=== PATIENT | male | born 1985 | race Caucasian/White ===

== ENCOUNTER 2018-06-29 13:55 | Emergency (ER) | payer BC, OTHER ==
[2018-06-29] MEDS ORDERED: Bacitracin Oint 1 GM U/D Packet TOP ONE (14:10)
[2018-06-29] MEDS ORDERED: Diphtheria,Pertussis(Acell),Tetanus Vaccine 0.5 ML Syringe IM ONE (14:10)
--- NOTE | 2018-06-29 14:14 | EDM.PDOC ---
ED HPI GENERAL MEDICAL PROBLEM - General Chief Complaint: Laceration Stated Complaint: CUT HIS RT THUMB Time Seen by Provider: 06/29/18 14:04 - History of Present Illness INITIAL COMMENTS - FREE TEXT/NARRATIVE: HISTORY AND PHYSICAL: History of present illness: Patient is a 32-year-old male presents with concern of acute injury to his right hand and forearm laceration this occurred prior to arrival he denies up-to -date tetanus Review of systems: As per history of present illness and below otherwise all systems reviewed and negative. Past medical history: As per history of present illness and as reviewed below otherwise noncontributory. Surgical history: As per history of present illness and as reviewed below otherwise noncontributory. Social history: No reported history of drug or alcohol abuse. Family history: As per history of present illness and as reviewed below otherwise noncontributory. Physical exam: HEENT: Atraumatic, normocephalic, pupils reactive, negative for conjunctival pallor or scleral icterus, mucous membranes moist, throat clear, neck supple, nontender, trachea midline. Lungs: Clear to auscultation, breath sounds equal bilaterally, chest nontender. Heart: S1S2, regular, negative for clicks, rubs, or JVD. Abdomen: Soft, nondistended, nontender. Negative for masses or hepatosplenomegaly. Negative for costovertebral tenderness. Pelvis: Stable nontender. Genitourinary: Deferred. Rectal: Deferred. Extremities: Patient has approximately 2 cm moderate Laceration of his right hand at the base of his right thumb there is no tendon involvement CMS neurovascular is unremarkable. Neuro: Awake, alert, oriented. Cranial nerves II through XII unremarkable. Cerebellum unremarkable. Motor and sensory unremarkable throughout. Exam nonfocal. Diagnostics: None Therapeutics: Patient was anesthetized 1% lidocaine without epinephrine and irrigated with 0.9 normal saline prepped and draped in sterile manner closed with 5-0 interrupted suture bacitracin was applied tetanus was updated Impression: #1 right hand injury ( laceration) Definitive disposition and diagnosis as appropriate pending reevaluation and review of above. - Related Data Allergies Allergy/AdvReac Type Severity Reaction Status Date / Time No Known Allergies Allergy Verified 12/23/15 21:39 Home Meds: Home Meds . [No Known Home Meds] 12/23/15 [History] Past Medical History - Past Health History Medical/Surgical History: Denies Medical/Surgical History Social & Family History - Family History Oncologic: Reports: Leukemia ED ROS GENERAL - Review of Systems Review Of Systems: ROS reveals no pertinent complaints other than HPI. ED EXAM, SKIN/RASH Exam: See Below (See dictation) Course - Orders/Labs/Meds Orders: Active Orders 24 hr Category Date Time Status Vaccines to be Administered [RC] PER UNIT ROUTINE Care 06/29/18 14:10 Active Bacitracin [Bacitracin Oint 1 GM] Med 06/29/18 14:10 Once 1 dose TOP ONETIME ONE Diphth,Pertuss(Acell),Tet Vac [Adacel] Med 06/29/18 14:10 Once 0.5 ml IM .ONCE ONE Lidocaine 1% [Xylocaine-MPF 1%] Med 06/29/18 14:10 Once 5 ml INJECT ONETIME ONE Medication Orders Lidocaine HCl (Xylocaine-Mpf 1%) 5 ml INJECT ONETIME ONE Stop: 06/29/18 14:11 Meds: Medications Generic Name Dose Route Start Last Admin Trade Name Freq PRN Reason Stop Dose Admin Lidocaine HCl 5 ml 06/29/18 14:10 Xylocaine-Mpf 1% INJECT 06/29/18 14:11 ONETIME ONE Departure - Departure Time of Disposition: 14:13 Disposition: Home, Self-Care 01 Condition: Good Clinical Impression: Laceration - Discharge Information *PRESCRIPTION DRUG MONITORING PROGRAM REVIEWED*: Not Applicable *COPY OF PRESCRIPTION DRUG MONITORING REPORT IN PATIENT HE: Not Applicable Referrals: PCP,None [Primary Care Provider] - Additional Instructions: The following information is given to patients seen in the emergency department who are being discharged to home. This information is to outline your options for follow-up care. We provide all patients seen in our emergency department with a follow-up referral. The need for follow-up, as well as the timing and circumstances, are variable depending upon the specifics of your emergency department visit. If you don't have a primary care physician on staff, we will provide you with a referral. We always advise you to contact your personal physician following an emergency department visit to inform them of the circumstance of the visit and for follow-up with them and/or the need for any referrals to a consulting specialist. The emergency department will also refer you to a specialist when appropriate. This referral assures that you have the opportunity for followup care with a specialist. All of these measure are taken in an effort to provide you with optimal care, which includes your followup. Under all circumstances we always encourage you to contact your private physician who remains a resource for coordinating your care. When calling for followup care, please make the office aware that this follow-up is from your recent emergency room visit. If for any reason you are refused follow-up, please contact the emergency department at and asked to speak to the emergency department charge nurse. Follow-up primary medical doctor as needed as discussed Motrin/Tylenol as directed return as needed as discussed - My Orders Last 24 Hours: My Active Orders 06/29/18 14:10 Vaccines to be Administered [RC] PER UNIT ROUTINE Bacitracin [Bacitracin Oint 1 GM] 1 dose TOP ONETIME ONE Diphth,Pertuss(Acell),Tet Vac [Adacel] 0.5 ml IM .ONCE ONE Lidocaine 1% [Xylocaine-MPF 1%] 5 ml INJECT ONETIME ONE - Assessment/Plan Last 24 Hours: My Active Orders 06/29/18 14:10 Vaccines to be Administered [RC] PER UNIT ROUTINE Bacitracin [Bacitracin Oint 1 GM] 1 dose TOP ONETIME ONE Diphth,Pertuss(Acell),Tet Vac [Adacel] 0.5 ml IM .ONCE ONE Lidocaine 1% [Xylocaine-MPF 1%] 5 ml INJECT ONETIME ONE
[2018-06-29 15:03] VITALS: BP 121/67
== END 2018-06-29 14:46 | disposition home or self-care (01) ==
LOC: MW.ED 13:55
DX: S61.011A Laceration without foreign body of right thumb without damage to nail, initial encounter (principal); Z23 Encounter for immunization; W26.9XXA Contact with unspecified sharp object(s), initial encounter
CPT/HCPCS: 12001; 90715; 99282; 99283

== ENCOUNTER 2019-02-15 18:33 | Observation (INO) | payer BC ==
[2019-02-15] MEDS ORDERED: Ketorolac 30 MG/ML SDV IVPUSH ONE (18:57)
[2019-02-15] MEDS ORDERED: Ondansetron 4 MG/2 ML SDV IVPUSH ONE (18:57)
[2019-02-15] MEDS ORDERED: Sodium Chloride 0.9% 1,000 ML IV ONE (18:57)
--- NOTE | 2019-02-15 18:57 | EDM.PDOC ---
ED HPI GENERAL MEDICAL PROBLEM - General Chief Complaint: Abdominal Pain Stated Complaint: PT HAS STOMACH PAIN Time Seen by Provider: 02/15/19 18:57 Source of Information: Reports: Patient History Limitations: Reports: No Limitations - History of Present Illness INITIAL COMMENTS - FREE TEXT/NARRATIVE: HISTORY AND PHYSICAL: History of present illness: Patient is a 33-year-old male who presents to the emergency room with complaints of lower abdominal pain, nausea and vomiting over the past 24 hours. He states the pain is more suprapubic and does have some difficulty with urination. Patient denies any fever, chills, headache, change in vision, syncope or near syncope. Denies any chest pain, back pain, shortness of breath or cough. Denies any diarrhea or constipation. Has not noted any blood in urine or stool. Patient has been eating and drinking appropriately. Review of systems: As per history of present illness and below otherwise all systems reviewed and negative. Past medical history: As per history of present illness and as reviewed below otherwise noncontributory. Surgical history: As per history of present illness and as reviewed below otherwise noncontributory. Social history: See social history for further information Family history: As per history of present illness and as reviewed below otherwise noncontributory. Physical exam: General: Well-developed and well-nourished 33-year-old male. Alert and oriented. Nontoxic appearing and in no acute distress. HEENT: Atraumatic, normocephalic, pupils equal and reactive bilaterally, negative for conjunctival pallor or scleral icterus, mucous membranes moist, TMs normal bilaterally, throat clear, neck supple, nontender, trachea midline. No drooling or trismus noted. No meningeal signs. No hot potato voice noted. Lungs: Clear to auscultation, breath sounds equal bilaterally, chest nontender. Heart: S1S2, regular rate and rhythm without overt murmur Abdomen: Low abdomen feels firm, nondistended, RLQ and mid suprapubic tenderness. Negative for masses or hepatosplenomegaly. Negative for costovertebral tenderness. Pelvis: Stable nontender. Genitourinary: Deferred. Rectal: Deferred. Skin: Intact, warm, dry. No lesions or rashes noted. Extremities: Atraumatic, moves all extremities per self with difficulty or deficits, negative for cords or calf pain. Neurovascular unremarkable. Neuro: Awake, alert, oriented. Cranial nerves II through XII unremarkable. Cerebellum unremarkable. Motor and sensory unremarkable throughout. Exam nonfocal. Notes: CT of the abdomen shows a perforated acute appendicitis. No well defined drainable abscess noted. Patient does have an elevated white count. Dr. Tamez , general surgeon performance management consultant, was consulted on this patient. Will give Zosyn IV now. Patient is aware of the diagnostic findings. Last ate and drank at 6pm 2119: Dr Tamez here to see patient. Patient will go to OR from here. Diagnostics: CBC, CMP, UA, CT abdomen and pelvis Therapeutics: IV fluid, Zofran, Toradol Impression: Perforated acute appendicitis Plan: To OR per Dr Tamez Definitive disposition and diagnosis as appropriate pending reevaluation and review of above. lower abdomen Pain Score (Numeric/FACES): 8 - Related Data Allergies Allergy/AdvReac Type Severity Reaction Status Date / Time No Known Allergies Allergy Verified 02/15/19 19:08 Home Meds: Home Meds . [No Known Home Meds] 12/23/15 [History] Past Medical History - Past Health History Medical/Surgical History: Denies Medical/Surgical History Social & Family History - Family History Family Medical History: Noncontributory Oncologic: Reports: Leukemia ED ROS GENERAL - Review of Systems Review Of Systems: ROS reveals no pertinent complaints other than HPI. ED EXAM, GI/ABD - Physical Exam Exam: See Below (See dictation) Course - Vital Signs Last Recorded V/S: Last Vital Signs Temp 99 F 02/15/19 19:00 Pulse 110 H 02/15/19 19:00 Resp 18 02/15/19 19:00 BP 136/79 02/15/19 19:00 Pulse Ox 97 02/15/19 19:00 - Orders/Labs/Meds Orders: Active Orders 24 hr Category Date Time Status Piperacillin/Tazobactam [Piperacil-Tazobact] 3.375 gm Med 02/15/19 20:54 Active Sodium Chloride 0.9% [Normal Saline] 50 ml IV ONETIME Medication Orders Piperacillin Sod/Tazobactam (Sod 3.375 gm/ Sodium Chloride) 50 mls @ 100 mls/ hr IV ONETIME ONE Stop: 02/15/19 21:23 Last Admin: 02/15/19 21:03 Dose: 100 mls/hr Labs: Laboratory Tests 02/15/19 02/15/19 02/15/19 Range/Units 19:31 19:31 20:22 WBC 14.68 H (4.0-11.0) K/uL RBC 5.75 (4.50-5.90) M/uL Hgb 17.4 H (13.0-17.0) g/dL Hct 49.4 (38.0-50.0) % MCV 85.9 (80.0-98.0) fL MCH 30.3 (27.0-32.0) pg MCHC 35.2 (31.0-37.0) g/dL RDW Std Deviation 39.4 (28.0-62.0) fl RDW Coeff of Vira 13 (11.0-15.0) % Plt Count 176 (150-400) K/uL MPV 10.40 (7.40-12.00) fL Neut % (Auto) 85.3 H (48.0-80.0) % Lymph % (Auto) 7.0 L (16.0-40.0) % [place] % (Auto) 7.6 (0.0-15.0) % Eos % (Auto) 0.0 (0.0-7.0) % Baso % (Auto) 0.1 (0.0-1.5) % Neut # (Auto) 12.5 H (1.4-5.7) K/uL Lymph # (Auto) 1.0 (0.6-2.4) K/uL [place] # (Auto) 1.1 H (0.0-0.8) K/uL Eos # (Auto) 0.0 (0.0-0.7) K/uL Baso # (Auto) 0.0 (0.0-0.1) K/uL Nucleated RBC % 0.0 /100WBC Nucleated RBCs # 0 K/uL Sodium 140 (136-148) mmol/L Potassium 3.6 (3.5-5.1) mmol/L Chloride 101 (98-107) mmol/L Carbon Dioxide 28.5 (21.0-32.0) mmol/L BUN 13 (7.0-18.0) mg/dL Creatinine 1.2 (0.8-1.3) mg/dL Est Cr Clr Drug Dosing 100.85 mL/min Estimated GFR (MDRD) > 60.0 ml/min Glucose 130 H (74-106) mg/dL Calcium 9.5 (8.5-10.1) mg/dL Total Bilirubin 0.9 (0.2-1.0) mg/dL AST 17 (15-37) IU/L ALT 39 (14-63) IU/L Alkaline Phosphatase 82 (46-116) U/L Total Protein 8.6 H (6.4-8.2) g/dL Albumin 4.1 (3.4-5.0) g/dL Globulin 4.5 H (2.6-4.0) g/dL Albumin/Globulin Ratio 0.9 (0.9-1.6) Urine Color DARK YELLOW Urine Appearance SLT CLOUDY Urine pH 6.5 (5.0-8.0) Ur Specific [place] 1.015 (1.001-1.035) Urine Protein TRACE H (NEGATIVE) mg/dL Urine Glucose (UA) NEGATIVE (NEGATIVE) mg/dL Urine Ketones 40 H (NEGATIVE) mg/dL Urine Occult Blood NEGATIVE (NEGATIVE) Urine Nitrite NEGATIVE (NEGATIVE) Urine Bilirubin SMALL H (NEGATIVE) Urine Ictotest NEGATIVE Urine Urobilinogen 0.2 (<2.0) EU/dL Ur Leukocyte Esterase NEGATIVE (NEGATIVE) Urine RBC 0-2 (0-2/HPF) Urine WBC 0-3 (0-5/HPF) Ur Epithelial Cells OCCASIONAL (NONE-FEW) Ur Renal Epithelial Cell OCCASIONAL Urine Bacteria FEW (NEGATIVE) Urine Mucus LIGHT (NONE-MOD) Meds: Medications Generic Name Dose Route Start Last Admin Trade Name Freq PRN Reason Stop Dose Admin Piperacillin Sod/Tazobactam 50 mls @ 100 mls/hr 02/15/19 20:54 02/15/19 21:03 Sod 3.375 gm/ Sodium Chloride IV 02/15/19 21:23 100 mls/hr ONETIME ONE Administration Discontinued Medications Generic Name Dose Route Start Last Admin Trade Name Freq PRN Reason Stop Dose Admin Sodium Chloride 1,000 mls @ 999 mls/hr 02/15/19 18:57 02/15/19 19:32 Normal Saline IV 02/15/19 19:57 999 mls/hr STAT ONE Administration Iopamidol 100 ml 02/15/19 20:28 02/15/19 20:28 Isovue-370 (76%) IVPUSH 02/15/19 20:29 100 ml ONETIME ONE Administration Ketorolac Tromethamine 30 mg 02/15/19 18:57 02/15/19 19:32 Toradol IVPUSH 02/15/19 18:58 30 mg ONETIME ONE Administration Ondansetron HCl 4 mg 02/15/19 18:57 02/15/19 19:32 Zofran IVPUSH 02/15/19 18:58 4 mg ONETIME ONE Administration Departure - Departure Time of Disposition: 21:19 Disposition: Refer to Observation Clinical Impression: Acute perforated appendicitis - Discharge Information Referrals: PCP,None [Primary Care Provider] - Forms: ED Department Discharge - My Orders Last 24 Hours: My Active Orders 02/15/19 20:54 Piperacillin/Tazobactam [Piperacil-Tazobact] 3.375 gm Sodium Chloride 0.9% [ Normal Saline] 50 ml IV ONETIME - Assessment/Plan Last 24 Hours: My Active Orders 02/15/19 20:54 Piperacillin/Tazobactam [Piperacil-Tazobact] 3.375 gm Sodium Chloride 0.9% [ Normal Saline] 50 ml IV ONETIME
[2019-02-15 19:56] LABS: CHLORIDE,CL 101 mmol/L (98-107); SODIUM,NA 140 mmol/L (136-148)
[2019-02-15] MEDS ORDERED: Iopamidol 755 Mg/ML 100 ML Bottle IVPUSH ONE (20:28)
--- NOTE | 2019-02-15 20:46 | CT ---
HISTORY: Lower abdominal pain. TECHNIQUE: CT abdomen and pelvis with IV contrast. COMPARISON: None. FINDINGS: Abdomen: No liver lesions. No bile duct dilation. No pancreatic mass or pancreatic duct dilation. No spleen lesions. No adrenal nodules. Kidneys enhance symmetrically. No renal mass. No hydronephrosis. Distal appendix is dilated with mild wall thickening. Inflammatory fat stranding in the lower pelvis greatest around the tip of the appendix. Extraluminal gas in the mesentery near the appendix. No well-defined fluid collection. No dilated bowel. No lymphadenopathy. Abdominal aorta is normal caliber. Pelvis: No lymphadenopathy. 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 No acute findings. Lower chest: Unremarkable. IMPRESSION: Perforated acute appendicitis. No well-defined drainable abscess. Please note that all CT scans at this facility use dose modulation, iterative reconstruction, and/or weight-based dosing when appropriate to reduce radiation dose to as low as reasonably achievable. Dictated by Geovani Elizabeth MD @ Feb 15 2019 8:36PM Signed by Dr. Geovani Elizabeth @ Feb 15 2019 8:44PM
[2019-02-15] MEDS ORDERED: Piperacillin/Tazobactam 3.375 GM in Sodium Chloride 0.9% 50 ML IV ONE (20:54)
[2019-02-15] MEDS ORDERED: Morphine 4 MG/ML Syringe IVPUSH ONE (21:41)
--- NOTE | 2019-02-15 21:42 | PCM.PREANE ---
Preanesthetic Assessment - Review of Systems General: No Symptoms Pulmonary: No Symptoms Cardiovascular: No Symptoms Gastrointestinal: Abdominal Pain Neurological: No Symptoms Other: Reports: None - Physical Assessment NPO Status Date: 02/15/19 NPO Status Time: 18:00 O2 Sat by Pulse Oximetry: 97 Respiratory Rate: 18 Vital Signs: Last Vital Signs Temp 37.2 C 02/15/19 19:00 Pulse 110 H 02/15/19 19:00 Resp 18 02/15/19 19:00 BP 136/79 02/15/19 19:00 Pulse Ox 97 02/15/19 19:00 Height: 1.88 m Weight: 97 kg ASA Class: 1E Mental Status: Alert & Oriented x3 Dentition: Reports: Normal Dentition ROM/Head Extension: Full Lungs: Clear to Auscultation, Normal Respiratory Effort Cardiovascular: Regular Rate, Regular Rhythm - Lab Values: Laboratory Last Values WBC 14.68 K/uL (4.0-11.0) H 02/15/19 19:31 RBC 5.75 M/uL (4.50-5.90) 02/15/19 19:31 Hgb 17.4 g/dL (13.0-17.0) H 02/15/19 19:31 Hct 49.4 % (38.0-50.0) 02/15/19 19:31 MCV 85.9 fL (80.0-98.0) 02/15/19 19:31 MCH 30.3 pg (27.0-32.0) 02/15/19 19:31 MCHC 35.2 g/dL (31.0-37.0) 02/15/19 19:31 RDW Std Deviation 39.4 fl (28.0-62.0) 02/15/19 19:31 RDW Coeff of Vira 13 % (11.0-15.0) 02/15/19 19:31 Plt Count 176 K/uL (150-400) 02/15/19 19:31 MPV 10.40 fL (7.40-12.00) 02/15/19 19:31 Neut % (Auto) 85.3 % (48.0-80.0) H 02/15/19 19:31 Lymph % (Auto) 7.0 % (16.0-40.0) L 02/15/19 19:31 [place] % (Auto) 7.6 % (0.0-15.0) 02/15/19 19: Eos % (Auto) 0.0 % (0.0-7.0) 02/15/19: Baso % (Auto) 0.1 % (0.0-1.5) 02/15/19: Neut # (Auto) 12.5 K/uL (1.4-5.7) H 02/15/19: Lymph # (Auto) 1.0 K/uL (0.6-2.4) 02/15/19: [place] # (Auto) 1.1 K/uL (0.0-0.8) H 02/15/19: Eos # (Auto) 0.0 K/uL (0.0-0.7) 02/15/19: Baso # (Auto) 0.0 K/uL (0.0-0.1) 02/15/19: Nucleated RBC % 0.0 /100WBC 02/15/19: Nucleated RBCs # 0 K/uL 02/15/19: Sodium 140 mmol/L (136-148) 02/15/19: Potassium 3.6 mmol/L (3.5-5.1) 02/15/19: Chloride 101 mmol/L (98-107) 02/15/19: Carbon Dioxide 28.5 mmol/L (21.0-32.0) 02/15/19: BUN 13 mg/dL (7.0-18.0) 02/15/19: Creatinine 1.2 mg/dL (0.8-1.3) 02/15/19 19: Est Cr Clr Drug Dosing 100.85 mL/min 02/15/19 19: Estimated GFR (MDRD) > 60.0 ml/min 02/15/19: Glucose 130 mg/dL (74-106) H 02/15/19: Calcium 9.5 mg/dL (8.5-10.1) 02/15/19 19: Total Bilirubin 0.9 mg/dL (0.2-1.0) 02/15/19 19: AST 17 IU/L (15-37) 02/15/19 19:31 ALT 39 IU/L (14-63) 02/15/19 19:31 Alkaline Phosphatase 82 U/L (46-116) 02/15/19 19:31 Total Protein 8.6 g/dL (6.4-8.2) H 02/15/19 19:31 Albumin 4.1 g/dL (3.4-5.0) 02/15/19 19:31 Globulin 4.5 g/dL (2.6-4.0) H 02/15/19 19:31 Albumin/Globulin Ratio 0.9 (0.9-1.6) 02/15/19 19:31 Urine Color DARK YELLOW 02/15/19 20:22 Urine Appearance SLT CLOUDY 02/15/19 20:22 Urine pH 6.5 (5.0-8.0) 02/15/19 20:22 Ur Specific [place] 1.015 (1.001-1.035) 02/15/19 20:22 Urine Protein TRACE mg/dL (NEGATIVE) H 02/15/19 20:22 Urine Glucose (UA) NEGATIVE mg/dL (NEGATIVE) 02/15/19 20:22 Urine Ketones 40 mg/dL (NEGATIVE) H 02/15/19 20:22 Urine Occult Blood NEGATIVE (NEGATIVE) 02/15/19 20:22 Urine Nitrite NEGATIVE (NEGATIVE) 02/15/19 20:22 Urine Bilirubin SMALL (NEGATIVE) H 02/15/19 20:22 Urine Ictotest NEGATIVE 02/15/19 20:22 Urine Urobilinogen 0.2 EU/dL (<2.0) 02/15/19 20:22 Ur Leukocyte Esterase NEGATIVE (NEGATIVE) 02/15/19 20:22 Urine RBC 0-2 (0-2/HPF) 02/15/19 20:22 Urine WBC 0-3 (0-5/HPF) 02/15/19 20:22 Ur Epithelial Cells OCCASIONAL (NONE-FEW) 02/15/19 20:22 Ur Renal Epithelial Cell OCCASIONAL 02/15/19 20:22 Urine Bacteria FEW (NEGATIVE) 02/15/19 20:22 Urine Mucus LIGHT (NONE-MOD) 02/15/19 20:22 - Allergies Allergies/Adverse Reactions: Allergies Allergy/AdvReac Type Severity Reaction Status Date / Time No Known Allergies Allergy Verified 02/15/19 19:08 - Acknowledgements Anesthesia Type Planned: General Anesthesia (Risks and bennifits discussed and patient wishes to proceed.) Pt an Appropriate Candidate for the Planned Anesthesia: Yes Alternatives and Risks of Anesthesia Discussed w Pt/Guardian: Yes Pt/Guardian Understands and Agrees with Anesthesia Plan: Yes PreAnesthesia Questionnaire - Past Health History Medical/Surgical History: Denies Medical/Surgical History - SUBSTANCE USE Smoking Status *Q: Never Smoker Recreational Drug Use History: No - HOME MEDS Home Medications: Home Meds . [No Known Home Meds] 12/23/15 [History] - CURRENT (IN HOUSE) MEDS Current Meds: Current Medications Lactated Ringer's (Ringers, Lactated) 1,000 mls @ 125 mls/hr IV ASDIRECTED TANYA Discontinued Medications Sodium Chloride (Normal Saline) 1,000 mls @ 999 mls/hr IV STAT ONE Stop: 02/15/19 19:57 Last Admin: 02/15/19 19:32 Dose: 999 mls/hr Piperacillin Sod/Tazobactam (Sod 3.375 gm/ Sodium Chloride) 50 mls @ 100 mls/ hr IV ONETIME ONE Stop: 02/15/19 21:23 Last Admin: 02/15/19 21:03 Dose: 100 mls/hr Iopamidol (Isovue-370 (76%)) 100 ml IVPUSH ONETIME ONE Stop: 02/15/19 20:29 Last Admin: 02/15/19 20:28 Dose: 100 ml Ketorolac Tromethamine (Toradol) 30 mg IVPUSH ONETIME ONE Stop: 02/15/19 18:58 Last Admin: 02/15/19 19:32 Dose: 30 mg Ondansetron HCl (Zofran) 4 mg IVPUSH ONETIME ONE Stop: 02/15/19 18:58 Last Admin: 02/15/19 19:32 Dose: 4 mg
--- NOTE | 2019-02-15 21:42 | PCM.HP ---
H&P History of Present Illness - General Date of Service: 02/15/19 Admit Problem/Dx: Admission Diagnosis/Problem Admission Diagnosis/Problem Appendicitis Source of Information: Patient, Family History Limitations: Reports: No Limitations - History of Present Illness Initial Comments - Free Text/Narative: 33-year-old gentleman who developed abdominal pain last night. Pain was rather diffuse initially, now it has migrated to the lower quadrant, slightly greater on the right than the left. No fever or chills. Patient does have nausea and vomiting and is not able to keep anything down. He also has anorexia. Symptom Onset Date: 02/14/19 Location: Reports: Abdomen Quality: Reports: Pressure, Throbbing Severity: Moderate Improves with: Reports: Rest Worsens with: Reports: Movement Context: Reports: Sick Contact Associated Symptoms: Reports: Loss of Appetite, Nausea/Vomiting. Denies: Fever/ Chills lower abdomen Pain Score (Numeric/FACES): 8 - Related Data Allergies/Adverse Reactions: Allergies Allergy/AdvReac Type Severity Reaction Status Date / Time No Known Allergies Allergy Verified 02/15/19 19:08 Home Medications: Home Meds . [No Known Home Meds] 12/23/15 [History] Past Medical History - Past Health History Medical/Surgical History: Denies Medical/Surgical History Social & Family History - Family History Family Medical History: Noncontributory Oncologic: Reports: Leukemia - Tobacco Use Smoking Status *Q: Never Smoker - Recreational Drug Use Recreational Drug Use: No H&P Review of Systems - Review of Systems: Review Of Systems: See Below General: Reports: Malaise, Decreased Appetite. Denies: Fever, Chills, Night Sweats, Diaphoresis HEENT: Reports: No Symptoms Pulmonary: Denies: Shortness of Breath, Wheezing Cardiovascular: Denies: Chest Pain Gastrointestinal: Reports: Abdominal Pain, Anorexia, Decreased Appetite, Flatus , Nausea, Vomiting. Denies: Black Stool, Bloody Stool, Constipation, Diarrhea, Distension, Hematemesis, Hematochezia Genitourinary: Reports: No Symptoms Musculoskeletal: Reports: No Symptoms Skin: Reports: No Symptoms Psychiatric: Reports: No Symptoms Neurological: Reports: No Symptoms Hematologic/Lymphatic: Reports: No Symptoms Immunologic: Reports: No Symptoms Exam - Exam Exam: See Below - Vital Signs Vital Signs: Last Vital Signs Temp 99 F 02/15/19 19:00 Pulse 110 H 02/15/19 19:00 Resp 18 02/15/19 19:00 BP 136/79 02/15/19 19:00 Pulse Ox 97 02/15/19 19:00 Weight: 213 lb 13.574 oz - Exam General: Alert, Oriented, Cooperative, Mild Distress HEENT: Conjunctiva Clear, EACs Clear. No: Scleral Icterus Neck: Supple, Trachea Midline Lungs: Clear to Auscultation, Normal Respiratory Effort Cardiovascular: Regular Rate, Regular Rhythm, Tachycardia. No: Systolic Murmur , Diastolic Murmur GI/Abdominal Exam: Soft, No Distention, No Mass, Rebound, Tender, Abnormal Bowel Sounds (Hypoactive). No: Guarding, Rigid (Male) Exam: Deferred Rectal (Males) Exam: Deferred Back Exam: Normal Inspection Extremities: Normal Inspection, Normal Range of Motion, No Pedal Edema Peripheral Pulses: 4+: Posterior Tibial (L), Posterior Tibial (R), Dorsalis Pedis (L), Dorsalis Pedis (R) Skin: Warm, Dry, Intact Neurological: Cranial Nerves Intact Psychiatric: Alert, Normal Affect, Normal Mood - Patient Data Lab Results Last 24 hrs: Laboratory Results - last 24 hr 02/15/19 02/15/19 02/15/19 Range/Units 19:31 19:31 20:22 WBC 14.68 H (4.0-11.0) K/uL RBC 5.75 (4.50-5.90) M/uL Hgb 17.4 H (13.0-17.0) g/dL Hct 49.4 (38.0-50.0) % MCV 85.9 (80.0-98.0) fL MCH 30.3 (27.0-32.0) pg MCHC 35.2 (31.0-37.0) g/dL RDW Std Deviation 39.4 (28.0-62.0) fl RDW Coeff of Vira 13 (11.0-15.0) % Plt Count 176 (150-400) K/uL MPV 10.40 (7.40-12.00) fL Neut % (Auto) 85.3 H (48.0-80.0) % Lymph % (Auto) 7.0 L (16.0-40.0) % [place] % (Auto) 7.6 (0.0-15.0) % Eos % (Auto) 0.0 (0.0-7.0) % Baso % (Auto) 0.1 (0.0-1.5) % Neut # (Auto) 12.5 H (1.4-5.7) K/uL Lymph # (Auto) 1.0 (0.6-2.4) K/uL [place] # (Auto) 1.1 H (0.0-0.8) K/uL Eos # (Auto) 0.0 (0.0-0.7) K/uL Baso # (Auto) 0.0 (0.0-0.1) K/uL Nucleated RBC % 0.0 /100WBC Nucleated RBCs # 0 K/uL Sodium 140 (136-148) mmol/L Potassium 3.6 (3.5-5.1) mmol/L Chloride 101 (98-107) mmol/L Carbon Dioxide 28.5 (21.0-32.0) mmol/L BUN 13 (7.0-18.0) mg/dL Creatinine 1.2 (0.8-1.3) mg/dL Est Cr Clr Drug Dosing 100.85 mL/min Estimated GFR (MDRD) > 60.0 ml/min Glucose 130 H (74-106) mg/dL Calcium 9.5 (8.5-10.1) mg/dL Total Bilirubin 0.9 (0.2-1.0) mg/dL AST 17 (15-37) IU/L ALT 39 (14-63) IU/L Alkaline Phosphatase 82 (46-116) U/L Total Protein 8.6 H (6.4-8.2) g/dL Albumin 4.1 (3.4-5.0) g/dL Globulin 4.5 H (2.6-4.0) g/dL Albumin/Globulin Ratio 0.9 (0.9-1.6) Urine Color DARK YELLOW Urine Appearance SLT CLOUDY Urine pH 6.5 (5.0-8.0) Ur Specific [place] 1.015 (1.001-1.035) Urine Protein TRACE H (NEGATIVE) mg/dL Urine Glucose (UA) NEGATIVE (NEGATIVE) mg/dL Urine Ketones 40 H (NEGATIVE) mg/dL Urine Occult Blood NEGATIVE (NEGATIVE) Urine Nitrite NEGATIVE (NEGATIVE) Urine Bilirubin SMALL H (NEGATIVE) Urine Ictotest NEGATIVE Urine Urobilinogen 0.2 (<2.0) EU/dL Ur Leukocyte Esterase NEGATIVE (NEGATIVE) Urine RBC 0-2 (0-2/HPF) Urine WBC 0-3 (0-5/HPF) Ur Epithelial Cells OCCASIONAL (NONE-FEW) Ur Renal Epithelial Cell OCCASIONAL Urine Bacteria FEW (NEGATIVE) Urine Mucus LIGHT (NONE-MOD) Result Diagrams: 02/15/19 19:31 02/15/19 19:31 Imaging Impressions Last 24 hrs: CT scan report personally reviewed. I certainly agree that he has appendicitis. I did not see any obvious abscess. - Problem List (1) Acute perforated appendicitis SNOMED Code(s): 192426584 ICD Code: K35.32 - ACUTE APPENDICITIS WITH PERF AND LOC PERITONITIS, W/O ABSCS Status: Acute Current Visit: Yes Problem List Initiated/Reviewed/Updated: Yes Orders Last 24hrs: Active Orders 24 hr Category Date Time Status Admission Status [Patient Status] [ADT] Stat ADT 02/15/19 21:25 Active Antiembolic Devices [RC] PER UNIT ROUTINE Care 02/15/19 21:33 Active Antiembolic Devices [RC] PER UNIT ROUTINE Care 02/15/19 21:36 Ordered Insert Urinary Catheter [OM.PC] Timed Care 02/15/19 21:36 Ordered Oxygen Therapy [RC] ASDIRECTED Care 02/15/19 21:36 Ordered RT Incentive Spirometry [RC] Q1HWA Care 02/15/19 21:36 Ordered Skin Preparation [RC] .PREOP Care 02/15/19 21:36 Ordered Urinary Catheter Assessment [RC] ASDIRECTED Care 02/15/19 21:36 Ordered Urinary Catheter Assessment [RC] ASDIRECTED Care 02/15/19 21:36 Ordered Urinary Catheter Assessment [RC] ASDIRECTED Care 02/15/19 21:36 Ordered Vital Signs [RC] PER UNIT ROUTINE Care 02/15/19 21:36 Ordered Nothing Per Oral Diet [DIET] Diet 02/15/19 Dinner Ordered Lactated Ringers @ 125 MLS/HR(1000ml) Med 02/15/19 21:45 Ordered Lactated Ringers [Ringers, Lactated] 1,000 ml IV ASDIRECTED Antiembolic Hose [OM.PC] Routine Oth 02/15/19 21:36 Ordered MARTA Hose [Antiembolic Hose] [OM.PC] Stat Oth 02/15/19 21:33 Ordered Resuscitation Status Routine Resus Stat 02/15/19 21:36 Ordered Assessment/Plan Comment:: Laparoscopic appendectomy, possible open appendectomy. Both operative procedures, along with the risks, including, but not limited to, bleeding, infection, pneumonia, deep venous thrombosis, pulmonary emboli, myocardial infarction, and adjacent organ injury have been reviewed with the patient who voices understanding, offers no questions and agrees to proceed. Patient and his are both aware that I may have to open to adequately deal with his appendicitis. We also discussed the possibility of placing a drain and leaving that for a few days after surgery. They again wish to proceed. Questions have been answered.
[2019-02-15] MEDS ORDERED: Lactated Ringers 1,000 ML IV SCH (21:45)
[2019-02-15] MEDS ORDERED: ceFAZolin 1 GM Vial ONE (21:56)
[2019-02-15] MEDS ORDERED: Bupivacaine 0.5% 30 ML SDV ONE (21:56)
[2019-02-15] MEDS ORDERED: Lidocaine 2% 5 ML SDV ONE (22:09)
[2019-02-15] MEDS ORDERED: Dexamethasone 4 MG/ML 5 ML MDV ONE (22:09)
[2019-02-15] MEDS ORDERED: Propofol 200 MG/20 ML SDV ONE (22:09)
[2019-02-15] MEDS ORDERED: Ondansetron 4 MG/2 ML SDV ONE (22:09)
[2019-02-15] MEDS ORDERED: Midazolam 1 MG/ML 2 ML SDV ONE (22:09)
[2019-02-15] MEDS ORDERED: fentaNYL 250 MCG/5 ML SDV ONE (22:09)
[2019-02-15] MEDS ORDERED: Ketorolac 30 MG/ML SDV ONE (22:09)
[2019-02-15] MEDS ORDERED: Morphine 4 MG/ML Syringe IVPUSH PRN (22:19)
[2019-02-15] MEDS ORDERED: Metoclopramide 10 MG/2 ML SDV IVPUSH PRN (22:19)
[2019-02-15] MEDS ORDERED: Promethazine 25 MG/ML SDV IM PRN (22:19)
[2019-02-15] MEDS ORDERED: hydrALAZINE 20 MG/ML SDV IVPUSH PRN ×2 (22:19)
[2019-02-15] MEDS ORDERED: Labetalol 20 MG/4 ML Syringe IVPUSH PRN (22:19)
[2019-02-15] MEDS ORDERED: Albuterol 0.083% 2.5 MG/3 ML Neb Soln NEB PRN (22:19)
[2019-02-15] MEDS ORDERED: Acetaminophen/HYDROcodone 325-5 MG Tab PO PRN (22:19)
[2019-02-15] MEDS ORDERED: Scopolamine 1.5 MG Transdermal Patch TRDERM PRN (22:19)
[2019-02-15] MEDS ORDERED: Naloxone 0.4 MG/ML Syringe IVPUSH PRN (22:19)
[2019-02-15] MEDS ORDERED: Meperidine PF 25 MG/ML Syringe IV PRN (22:19)
[2019-02-15] MEDS ORDERED: Ondansetron 4 MG/2 ML SDV IVPUSH PRN (22:19)
[2019-02-15] MEDS ORDERED: HYDROmorphone 2 MG/ML SDV IVPUSH PRN (22:19)
[2019-02-15] MEDS ORDERED: fentaNYL 100 MCG/2 ML SDV IVPUSH PRN (22:19)
[2019-02-15] MEDS ORDERED: Meperidine PF 25 MG/ML Syringe IVPUSH PRN (22:19)
[2019-02-15] MEDS ORDERED: Atropine 0.1 MG/ML 10 ML Syringe IVPUSH PRN (22:19)
[2019-02-16] MEDS ORDERED: Ondansetron 4 MG/2 ML SDV IVPUSH PRN
[2019-02-16] MEDS ORDERED: Acetaminophen 325 MG Tab PO PRN
--- NOTE | 2019-02-16 00:03 | PCM.OPNOTE ---
- General Post-Op/Procedure Note Date of Surgery/Procedure: 02/15/19 Operative Procedure(s): Laparoscopic appendectomy Pre Op Diagnosis: Acute abdomen Post-Op Diagnosis: Acute perforated appendicitis with localized peritonitis Anesthesia Technique: General ET Tube (ASA IE) Primary Surgeon: Joe Tamez Fluid Replacement, Intraop: 1,600 Output, Urine Amount: 50 EBL in mLs: 10 Surgical Drain/Tube Type: Jorge Drain Condition: Fair Free Text/Narrative:: DICTATION [id number] CPT CODE 36139
--- NOTE | 2019-02-16 00:31 | PCM.POSTAN ---
POST ANESTHESIA ASSESSMENT - MENTAL STATUS Mental Status: Alert, Oriented - VITAL SIGNS Pulse Rate: 88 SaO2: 96 Resp Rate: 18 Blood Pressure: 123/72 - RESPIRATORY Respiratory Status: Respiratory Rate WNL, Airway Patent, O2 Saturation Stable - CARDIOVASCULAR CV Status: Pulse Rate WNL, Blood Pressure Stable - GASTROINTESTINAL GI Status: No Symptoms - PAIN Pain Score: 0 - POST OP HYDRATION Hydration Status: Adequate & Stable - OBSERVATIONS Free Text/Narrative:: patient comfortable at this time no signs or symptoms of anesthesia related problems.
[2019-02-16] MEDS: Piperacillin/Tazobactam 3.375 GM in Sodium Chloride 0.9% 50 ML IV SCH ×4 (01:10→23:26)
[2019-02-16] MEDS: Lactated Ringers 1,000 ML IV SCH ×3 (01:11→19:36)
[2019-02-16] MEDS: Morphine 10 MG/ML Syringe IVPUSH PRN ×2 (06:27→23:34)
--- NOTE | 2019-02-16 06:43 | OR ---
SURGEON: Joe Tamez M.D. DATE OF PROCEDURE: 02/15/2019 OPERATION PERFORMED: Laparoscopic appendectomy with placement of a 19-[place] Jorge drain. ANESTHESIA: General endotracheal. ASA CLASSIFICATION: 1E. PREOPERATIVE DIAGNOSIS: Acute abdomen. POSTOPERATIVE DIAGNOSIS: Acute perforated appendicitis without abscess but with localized peritonitis. ESTIMATED BLOOD LOSS: 10 mL. INTRAOPERATIVE FLUID REPLACEMENT: 1600 mL of crystalloid. INTRAOPERATIVE URINE OUTPUT: 50 mL. DESCRIPTION OF PROCEDURE: The patient was taken to the operating room and placed on the operating table in the supine position. Time-out was called for appropriate identification of the patient and procedure. Thigh-high TEDs and sequential compression boots were placed. Time-out was called for appropriate identification of the patient and procedure. Following satisfactory attainment of general endotracheal anesthesia, Zhou catheter was placed in the patient's urinary bladder. The abdomen was prepped with DuraPrep solution, sterile drapes were applied. The skin above the umbilicus was infiltrated with 0.5% Marcaine solution. The skin incision was made and deepened through the subcutaneous tissue obtaining hemostasis with the use of electrocautery. Veress needle was introduced into the peritoneal cavity. Saline drop test was positive. Carbon dioxide pneumoperitoneum was established with the release set at 13 cm of water. Once a satisfactory pneumoperitoneum was established, 5 mm camera and port were placed through the supraumbilical incision. Under camera vision, 12 mm suprapubic port was placed. The skin was infiltrated with 0.5% Marcaine solution. Skin incision was made and then extended using electrocautery. Hemostasis was obtained with the use of electrocautery. The 12 mm port was then placed under direct vision into the peritoneal cavity. The patient was now positioned with his head down and rolled to the left. A third port was placed in the left lower quadrant. The skin was again infiltrated with 0.5% Marcaine solution prior to skin incision being made. With all trocars in place, our attention was turned to the right lower quadrant where the appendix was very prominently dilated with what appeared to be a perforation in the midpoint. I did not see any purulent fluid and there did not appear to be an abscess. The appendix was mobilized and the mesoappendix taken down with Harmonic scalpel. The base of the appendix was then ligated using the Endo-KYLAH stapler with a blue load. The appendix was promptly placed in an EndoCatch. The right lower quadrant was inspected for hemostasis and bleeding was controlled. The staple line was intact. The right lower quadrant was irrigated with 1 L of saline containing 1 g of Ancef. All of that fluid was aspirated. A 19-[place] Jorge drain was placed through the suprapubic port and secured with the 2-prong grasper until the EndoCatch containing the appendix and the 12 mm port were removed. Once that was accomplished, the drain was secured to the skin with a 2-0 silk. Under camera vision and with the patient now in neutral position, the 5 mm left lower quadrant port was removed, and finally, the supraumbilical camera and port were removed. Wounds were inspected for hemostasis and bleeding sites were electrocoagulated. Other than the 2-0 silk to secure the drain, the incisions were closed with skin phill and dressed with sterile Tegaderm pads. Sponge, needle, and instrument counts were all correct. Zhou catheter was removed prior to emergence from anesthesia. Following emergence from anesthesia and extubation, the patient was taken to the recovery room in stable condition. CAREN TIRADO /[id number]
[2019-02-16] MEDS: Acetaminophen/HYDROcodone 325-5 MG Tab PO PRN (10:54)
--- NOTE | 2019-02-16 11:40 | PCM.SURGPN ---
- General Info Date of Service: 02/16/19 POD#: 1 Post-Op Diagnosis: Ruptured appendicitis without abscess Functional Status: Reports: Pain Controlled, Tolerating Diet, Ambulating, Urinating - Review of Systems General: Denies: Fever, Weakness, Fatigue HEENT: Reports: No Symptoms Pulmonary: Denies: Shortness of Breath, Cough Cardiovascular: Denies: Chest Pain Gastrointestinal: Reports: Abdominal Pain (primarily incisional), Flatus. Denies: Constipation, Decreased Appetite, Diarrhea, Hematochezia, Melena, Nausea , Vomiting Genitourinary: Denies: Dysuria, Frequency, Burning, Pain, Urgency Musculoskeletal: Reports: No Symptoms Skin: Reports: No Symptoms Neurological: Reports: No Symptoms Psychiatric: Reports: No Symptoms - Patient Data Vitals - Most Recent: Last Vital Signs Temp 98.2 F 02/16/19 07:42 Pulse 73 02/16/19 07:42 Resp 16 02/16/19 07:42 BP 116/58 L 02/16/19 07:42 Pulse Ox 96 02/16/19 07:42 Weight - Most Recent: 213 lb 13.574 oz I&O - Last 24 Hours: Intake & Output 02/15/19 02/16/19 02/16/19 19:59 03:59 11:59 Intake Total 3400 900 Output Total 100 80 Balance 3300 820 Lab Results Last 24 Hrs: Laboratory Results - last 24 hr 02/15/19 02/15/19 02/15/19 Range/Units 19:31 19:31 20:22 WBC 14.68 H (4.0-11.0) K/uL RBC 5.75 (4.50-5.90) M/uL Hgb 17.4 H (13.0-17.0) g/dL Hct 49.4 (38.0-50.0) % MCV 85.9 (80.0-98.0) fL MCH 30.3 (27.0-32.0) pg MCHC 35.2 (31.0-37.0) g/dL RDW Std Deviation 39.4 (28.0-62.0) fl RDW Coeff of Vira 13 (11.0-15.0) % Plt Count 176 (150-400) K/uL MPV 10.40 (7.40-12.00) fL Neut % (Auto) 85.3 H (48.0-80.0) % Lymph % (Auto) 7.0 L (16.0-40.0) % [place] % (Auto) 7.6 (0.0-15.0) % Eos % (Auto) 0.0 (0.0-7.0) % Baso % (Auto) 0.1 (0.0-1.5) % Neut # (Auto) 12.5 H (1.4-5.7) K/uL Lymph # (Auto) 1.0 (0.6-2.4) K/uL [place] # (Auto) 1.1 H (0.0-0.8) K/uL Eos # (Auto) 0.0 (0.0-0.7) K/uL Baso # (Auto) 0.0 (0.0-0.1) K/uL Nucleated RBC % 0.0 /100WBC Nucleated RBCs # 0 K/uL Sodium 140 (136-148) mmol/L Potassium 3.6 (3.5-5.1) mmol/L Chloride 101 (98-107) mmol/L Carbon Dioxide 28.5 (21.0-32.0) mmol/L BUN 13 (7.0-18.0) mg/dL Creatinine 1.2 (0.8-1.3) mg/dL Est Cr Clr Drug Dosing 100.85 mL/min Estimated GFR (MDRD) > 60.0 ml/min Glucose 130 H (74-106) mg/dL Calcium 9.5 (8.5-10.1) mg/dL Total Bilirubin 0.9 (0.2-1.0) mg/dL AST 17 (15-37) IU/L ALT 39 (14-63) IU/L Alkaline Phosphatase 82 (46-116) U/L Total Protein 8.6 H (6.4-8.2) g/dL Albumin 4.1 (3.4-5.0) g/dL Globulin 4.5 H (2.6-4.0) g/dL Albumin/Globulin Ratio 0.9 (0.9-1.6) Urine Color DARK YELLOW Urine Appearance SLT CLOUDY Urine pH 6.5 (5.0-8.0) Ur Specific Kimper 1.015 (1.001-1.035) Urine Protein TRACE H (NEGATIVE) mg/dL Urine Glucose (UA) NEGATIVE (NEGATIVE) mg/dL Urine Ketones 40 H (NEGATIVE) mg/dL Urine Occult Blood NEGATIVE (NEGATIVE) Urine Nitrite NEGATIVE (NEGATIVE) Urine Bilirubin SMALL H (NEGATIVE) Urine Ictotest NEGATIVE Urine Urobilinogen 0.2 (<2.0) EU/dL Ur Leukocyte Esterase NEGATIVE (NEGATIVE) Urine RBC 0-2 (0-2/HPF) Urine WBC 0-3 (0-5/HPF) Ur Epithelial Cells OCCASIONAL (NONE-FEW) Ur Renal Epithelial Cell OCCASIONAL Urine Bacteria FEW (NEGATIVE) Urine Mucus LIGHT (NONE-MOD) 02/16/19 Range/Units 06:00 WBC 16.19 H (4.0-11.0) K/uL RBC 4.94 (4.50-5.90) M/uL Hgb 14.7 (13.0-17.0) g/dL Hct 43.2 (38.0-50.0) % MCV 87.4 (80.0-98.0) fL MCH 29.8 (27.0-32.0) pg MCHC 34.0 (31.0-37.0) g/dL RDW Std Deviation 40.8 (28.0-62.0) fl RDW Coeff of Vira 13 (11.0-15.0) % Plt Count 154 (150-400) K/uL MPV 10.80 (7.40-12.00) fL Neut % (Auto) 92.2 H (48.0-80.0) % Lymph % (Auto) 3.7 L (16.0-40.0) % [place] % (Auto) 4.1 (0.0-15.0) % Eos % (Auto) 0.0 (0.0-7.0) % Baso % (Auto) 0.0 (0.0-1.5) % Neut # (Auto) 14.9 H (1.4-5.7) K/uL Lymph # (Auto) 0.6 (0.6-2.4) K/uL [place] # (Auto) 0.7 (0.0-0.8) K/uL Eos # (Auto) 0.0 (0.0-0.7) K/uL Baso # (Auto) 0.0 (0.0-0.1) K/uL Nucleated RBC % 0.0 /100WBC Nucleated RBCs # 0 K/uL Sodium (136-148) mmol/L Potassium (3.5-5.1) mmol/L Chloride (98-107) mmol/L Carbon Dioxide (21.0-32.0) mmol/L BUN (7.0-18.0) mg/dL Creatinine (0.8-1.3) mg/dL Est Cr Clr Drug Dosing mL/min Estimated GFR (MDRD) ml/min Glucose (74-106) mg/dL Calcium (8.5-10.1) mg/dL Total Bilirubin (0.2-1.0) mg/dL AST (15-37) IU/L ALT (14-63) IU/L Alkaline Phosphatase (46-116) U/L Total Protein (6.4-8.2) g/dL Albumin (3.4-5.0) g/dL Globulin (2.6-4.0) g/dL Albumin/Globulin Ratio (0.9-1.6) Urine Color Urine Appearance Urine pH (5.0-8.0) Ur Specific Kimper (1.001-1.035) Urine Protein (NEGATIVE) mg/dL Urine Glucose (UA) (NEGATIVE) mg/dL Urine Ketones (NEGATIVE) mg/dL Urine Occult Blood (NEGATIVE) Urine Nitrite (NEGATIVE) Urine Bilirubin (NEGATIVE) Urine Ictotest Urine Urobilinogen (<2.0) EU/dL Ur Leukocyte Esterase (NEGATIVE) Urine RBC (0-2/HPF) Urine WBC (0-5/HPF) Ur Epithelial Cells (NONE-FEW) Ur Renal Epithelial Cell Urine Bacteria (NEGATIVE) Urine Mucus (NONE-MOD) Med Orders - Current: Current Medications Acetaminophen (Tylenol) 325 mg PO Q4H PRN PRN Reason: Fever Greater Than 101 Hydrocodone Bitart/Acetaminophen ([place] 325-5 Mg) 2 tab PO Q6H PRN PRN Reason: Pain (moderate 4-6) Hydrocodone Bitart/Acetaminophen ([place] 325-5 Mg) 1 - 2 tab PO Q4H PRN PRN Reason: Pain (moderate 4-6) Last Admin: 02/16/19 10:54 Dose: 2 tab Albuterol (Proventil Neb Soln) 2.5 mg NEB Q6HRRT PRN PRN Reason: Wheezing Atropine Sulfate (Atropine 0.1 Mg/Ml) 0.4 mg IVPUSH Q5M PRN PRN Reason: Bradycardia Fentanyl (Sublimaze) 50 mcg IVPUSH Q5M PRN PRN Reason: Pain (severe 7-10) Stop: 02/16/19 22:19 Hydralazine HCl (Apresoline) 5 mg IVPUSH ONETIME PRN PRN Reason: Hypertension Hydralazine HCl (Apresoline) 10 mg IVPUSH ONETIME PRN PRN Reason: Hypertension Hydromorphone HCl (Dilaudid) 0.25 mg IVPUSH Q10M PRN PRN Reason: Pain (severe 7-10) Stop: 02/16/19 22:19 Lactated Ringer's (Ringers, Lactated) 1,000 mls @ 125 mls/hr IV ASDIRECTED [facility] Last Admin: 02/15/19 21:46 Dose: 125 mls/hr Lactated Ringer's (Ringers, Lactated) 1,000 mls @ 125 mls/hr IV ASDIRECTED [facility] Last Admin: 02/16/19 10:46 Dose: 125 mls/hr Piperacillin Sod/Tazobactam (Sod 3.375 gm/ Sodium Chloride) 50 mls @ 100 mls/ hr IV Q8H [facility] Stop: 02/16/19 16:14 Last Admin: 02/16/19 08:02 Dose: 100 mls/hr Labetalol HCl (Normodyne) 10 mg IVPUSH Q6H PRN PRN Reason: Hypertension Stop: 02/16/19 22:19 Meperidine HCl (Demerol) 12.5 mg IVPUSH ONETIME PRN PRN Reason: Shivering Meperidine HCl (Demerol) 25 mg IV ONETIME PRN PRN Reason: Shivering Metoclopramide HCl (Reglan) 10 mg IVPUSH ONETIME PRN PRN Reason: Nausea Morphine Sulfate (Morphine) 4 mg IVPUSH Q10M PRN PRN Reason: Pain (severe 7-10) Stop: 02/16/19 22:19 Morphine Sulfate (Morphine) 0 mg IVPUSH Q1H PRN PRN Reason: Pain (severe 7-10) Last Admin: 02/16/19 06:27 Dose: 2 mg Naloxone HCl (Narcan) 0.1 mg IVPUSH ONETIME PRN PRN Reason: Respiratory Depression Ondansetron HCl (Zofran) 8 mg IVPUSH ONETIME PRN PRN Reason: Nausea Ondansetron HCl (Zofran) 4 mg IVPUSH Q6H PRN PRN Reason: Nausea/Vomiting Promethazine HCl (Phenergan) 12.5 mg IM ONETIME PRN PRN Reason: Nausea Scopolamine (Transderm-Scop) 1.5 mg TRDERM Q72H PRN PRN Reason: Nausea Discontinued Medications Bupivacaine HCl (Marcaine 0.5%) Confirm Administered Dose 30 ml .ROUTE .STK-MED ONE Stop: 02/15/19 21:57 Cefazolin Sodium (Ancef) Confirm Administered Dose 1 gm .ROUTE .STK-MED ONE Stop: 02/15/19 21:57 Dexamethasone (Dexamethasone) Confirm Administered Dose 20 mg .ROUTE .STK-MED ONE Stop: 02/15/19 22:10 Fentanyl (Sublimaze) Confirm Administered Dose 250 mcg .ROUTE .STK-MED ONE Stop: 02/15/19 22:10 Sodium Chloride (Normal Saline) 1,000 mls @ 999 mls/hr IV STAT ONE Stop: 02/15/19 19:57 Last Admin: 02/15/19 19:32 Dose: 999 mls/hr Piperacillin Sod/Tazobactam (Sod 3.375 gm/ Sodium Chloride) 50 mls @ 100 mls/ hr IV ONETIME ONE Stop: 02/15/19 21:23 Last Admin: 02/15/19 21:03 Dose: 100 mls/hr Iopamidol (Isovue-370 (76%)) 100 ml IVPUSH ONETIME ONE Stop: 02/15/19 20:29 Last Admin: 02/15/19 20:28 Dose: 100 ml Ketorolac Tromethamine (Toradol) 30 mg IVPUSH ONETIME ONE Stop: 02/15/19 18:58 Last Admin: 02/15/19 19:32 Dose: 30 mg Ketorolac Tromethamine (Toradol) Confirm Administered Dose 30 mg .ROUTE .STK- MED ONE Stop: 02/15/19 22:10 Lidocaine (Xylocaine-Mpf 2%) Confirm Administered Dose 5 ml .ROUTE .STK-MED ONE Stop: 02/15/19 22:10 Midazolam HCl (Versed 1 Mg/Ml) Confirm Administered Dose 2 mg .ROUTE .STK-MED ONE Stop: 02/15/19 22:10 Morphine Sulfate (Morphine) 4 mg IVPUSH ONETIME ONE Stop: 02/15/19 21:42 Last Admin: 02/15/19 21:46 Dose: 4 mg Ondansetron HCl (Zofran) 4 mg IVPUSH ONETIME ONE Stop: 02/15/19 18:58 Last Admin: 02/15/19 19:32 Dose: 4 mg Ondansetron HCl (Zofran) Confirm Administered Dose 8 mg .ROUTE .STK-MED ONE Stop: 02/15/19 22:10 Propofol (Diprivan 20 Ml) Confirm Administered Dose 200 mg .ROUTE .STK-MED ONE Stop: 02/15/19 22:10 - Exam Wound/Incisions: Dressing Dry and Intact, No Drainage (expected amount of drainage on the dressings) Quality Assessment: No: Supplemental Oxygen General: Alert, Oriented, Cooperative, No Acute Distress HEENT: Pupils Equal, Pupils Reactive. No: Scleral Icterus Neck: Supple Lungs: Clear to Auscultation, Normal Respiratory Effort Cardiovascular: Regular Rate, Regular Rhythm, No Murmurs. No: Tachycardia GI/Abdominal Exam: Normal Bowel Sounds, Soft, Non-Tender, No Distention, No Mass , Other (Jorge drain 80 mls of serosanguineous drainage) Extremities: Normal Inspection, Normal Range of Motion, Normal Capillary Refill Skin: Warm, Intact Neurological: No New Focal Deficit Psy/Mental Status: Alert, Normal Affect, Normal Mood - Problem List & Annotations (1) Acute perforated appendicitis SNOMED Code(s): 169073821 Code(s): K35.32 - ACUTE APPENDICITIS WITH PERF AND LOC PERITONITIS, W/O ABSCS Status: Acute Priority: High Current Visit: Yes - Problem List Review Problem List Initiated/Reviewed/Updated: Yes - My Orders Last 24 Hours: Active Orders 24 hr Category Date Time Status Admission Status [Patient Status] [ADT] Stat ADT 02/15/19 21:25 Active Antiembolic Devices [RC] PER UNIT ROUTINE Care 02/15/19 21:36 Active Insert Urinary Catheter [OM.PC] Timed Care 02/15/19 21:36 Ordered Oxygen Therapy [RC] PRN Care 02/15/19 23:58 Active Pulse Oximetry [RC] ASDIRECTED Care 02/15/19 23:58 Active RT Incentive Spirometry [RC] Q1HWA Care 02/15/19 21:36 Active Up ad Nori [RC] PER UNIT ROUTINE Care 02/15/19 23:58 Active Advance Diet Instructions [DIET] Diet 02/15/19 Dinner Active Clear Liquid Diet [DIET] Diet 02/16/19 Breakfast Active CBC WITH AUTO DIFF [HEME] AM Lab 02/17/19 05:11 Ordered Acetaminophen [Tylenol] Med 02/16/19 00:00 Active 325 mg PO Q4H PRN Acetaminophen/HYDROcodone [[place] 325-5 MG] Med 02/16/19 00:00 Active 1 - 2 tab PO Q4H PRN Acetaminophen/HYDROcodone [[place] 325-5 MG] Med 02/15/19 22:19 Active 2 tab PO Q6H PRN Albuterol [Proventil Neb Soln] Med 02/15/19 22:19 Active 2.5 mg NEB Q6HRRT PRN Atropine [Atropine 0.1 MG/ML] Med 02/15/19 22:19 Active 0.4 mg IVPUSH Q5M PRN HYDROmorphone [Dilaudid] Med 02/15/19 22:19 Active 0.25 mg IVPUSH Q10M PRN Labetalol [Normodyne] Med 02/15/19 22:19 Active 10 mg IVPUSH Q6H PRN Lactated Ringers [Ringers, Lactated] 1,000 ml Med 02/15/19 21:45 Active IV ASDIRECTED Lactated Ringers [Ringers, Lactated] 1,000 ml Med 02/15/19 23:45 Active IV ASDIRECTED Meperidine [Demerol] Med 02/15/19 22:19 Active 12.5 mg IVPUSH ONETIME PRN Meperidine [Demerol] Med 02/15/19 22:19 Active 25 mg IV ONETIME PRN Metoclopramide [Reglan] Med 02/15/19 22:19 Active 10 mg IVPUSH ONETIME PRN Morphine Med 02/15/19 22:19 Active 4 mg IVPUSH Q10M PRN Morphine Med 02/16/19 00:00 Active See Dose Instructions IVPUSH Q1H PRN Naloxone [Narcan] Med 02/15/19 22:19 Active 0.1 mg IVPUSH ONETIME PRN Ondansetron [Zofran] Med 02/16/19 00:00 Active 4 mg IVPUSH Q6H PRN Ondansetron [Zofran] Med 02/15/19 22:19 Active 8 mg IVPUSH ONETIME PRN Piperacillin/Tazobactam [Piperacil-Tazobact] 3.375 gm Med 02/15/19 23:45 Active Sodium Chloride 0.9% [Normal Saline] 50 ml IV Q8H Piperacillin/Tazobactam [Piperacil-Tazobact] 3.375 gm Med 02/16/19 11:45 Ordered Sodium Chloride 0.9% [Normal Saline] 50 ml IV Q8H Promethazine [Phenergan] Med 02/15/19 22:19 Active 12.5 mg IM ONETIME PRN Scopolamine [Transderm-Scop] Med 02/15/19 22:19 Active 1.5 mg TRDERM Q72H PRN fentaNYL [Sublimaze] Med 02/15/19 22:19 Active 50 mcg IVPUSH Q5M PRN hydrALAZINE [Apresoline] Med 02/15/19 22:19 Active 10 mg IVPUSH ONETIME PRN hydrALAZINE [Apresoline] Med 02/15/19 22:19 Active 5 mg IVPUSH ONETIME PRN Antiembolic Hose [OM.PC] Routine Oth 02/15/19 21:36 Ordered MARTA Hose [Antiembolic Hose] [OM.PC] Stat Oth 02/15/19 21:33 Ordered Resuscitation Status Routine Resus Stat 02/15/19 21:36 Ordered Medication Orders Acetaminophen (Tylenol) 325 mg PO Q4H PRN PRN Reason: Fever Greater Than 101 Hydrocodone Bitart/Acetaminophen ([place] 325-5 Mg) 2 tab PO Q6H PRN PRN Reason: Pain (moderate 4-6) Hydrocodone Bitart/Acetaminophen ([place] 325-5 Mg) 1 - 2 tab PO Q4H PRN PRN Reason: Pain (moderate 4-6) Last Admin: 02/16/19 10:54 Dose: 2 tab Albuterol (Proventil Neb Soln) 2.5 mg NEB Q6HRRT PRN PRN Reason: Wheezing Atropine Sulfate (Atropine 0.1 Mg/Ml) 0.4 mg IVPUSH Q5M PRN PRN Reason: Bradycardia Fentanyl (Sublimaze) 50 mcg IVPUSH Q5M PRN PRN Reason: Pain (severe 7-10) Stop: 02/16/19 22:19 Hydralazine HCl (Apresoline) 5 mg IVPUSH ONETIME PRN PRN Reason: Hypertension Hydralazine HCl (Apresoline) 10 mg IVPUSH ONETIME PRN PRN Reason: Hypertension Hydromorphone HCl (Dilaudid) 0.25 mg IVPUSH Q10M PRN PRN Reason: Pain (severe 7-10) Stop: 02/16/19 22:19 Lactated Ringer's (Ringers, Lactated) 1,000 mls @ 125 mls/hr IV ASDIRECTED [facility] Last Admin: 02/15/19 21:46 Dose: 125 mls/hr Lactated Ringer's (Ringers, Lactated) 1,000 mls @ 125 mls/hr IV ASDIRECTED [facility] Last Admin: 02/16/19 10:46 Dose: 125 mls/hr Infusion: 02/16/19 09:11 Dose: 125 mls/hr Admin: 02/16/19 01:11 Dose: 125 mls/hr Piperacillin Sod/Tazobactam (Sod 3.375 gm/ Sodium Chloride) 50 mls @ 100 mls/ hr IV Q8H [facility] Stop: 02/16/19 16:14 Last Admin: 02/16/19 08:02 Dose: 100 mls/hr Infusion: 02/16/19 01:40 Dose: 100 mls/hr Admin: 02/16/19 01:10 Dose: 100 mls/hr Labetalol HCl (Normodyne) 10 mg IVPUSH Q6H PRN PRN Reason: Hypertension Stop: 02/16/19 22:19 Meperidine HCl (Demerol) 12.5 mg IVPUSH ONETIME PRN PRN Reason: Shivering Meperidine HCl (Demerol) 25 mg IV ONETIME PRN PRN Reason: Shivering Metoclopramide HCl (Reglan) 10 mg IVPUSH ONETIME PRN PRN Reason: Nausea Morphine Sulfate (Morphine) 4 mg IVPUSH Q10M PRN PRN Reason: Pain (severe 7-10) Stop: 02/16/19 22:19 Morphine Sulfate (Morphine) 0 mg IVPUSH Q1H PRN PRN Reason: Pain (severe 7-10) Last Admin: 02/16/19 06:27 Dose: 2 mg Naloxone HCl (Narcan) 0.1 mg IVPUSH ONETIME PRN PRN Reason: Respiratory Depression Ondansetron HCl (Zofran) 8 mg IVPUSH ONETIME PRN PRN Reason: Nausea Ondansetron HCl (Zofran) 4 mg IVPUSH Q6H PRN PRN Reason: Nausea/Vomiting Promethazine HCl (Phenergan) 12.5 mg IM ONETIME PRN PRN Reason: Nausea Scopolamine (Transderm-Scop) 1.5 mg TRDERM Q72H PRN PRN Reason: Nausea - Assessment Assessment (Free Text/Narrative):: WBC 16K today--not unexpected given the ruptured appendix and acute intervention. - Plan Plan (Free Text/Narrative):: Increase activity. Repeat CBC in the morning. Continue Zosyn for another 24 hours.
[2019-02-16] MEDS ORDERED: Piperacillin/Tazobactam 3.375 GM in Sodium Chloride 0.9% 50 ML IV SCH (11:45)
[2019-02-17] MEDS: Acetaminophen/HYDROcodone 325-5 MG Tab PO PRN (03:52)
[2019-02-17] MEDS: Lactated Ringers 1,000 ML IV SCH (03:56)
[2019-02-17] MEDS: Piperacillin/Tazobactam 3.375 GM in Sodium Chloride 0.9% 50 ML IV SCH (08:34)
[2019-02-17 12:19] VITALS: BP 109/73
--- NOTE | 2019-02-19 16:35 | PCM.DCSUM1 ---
Discharge Summary - Hospital Course Free Text/Narrative:: Patient is a 33-year-old gentleman who presented to the hospital on the evening of admission with acute abdominal pain. He was found have an acute appendicitis. He was taken to the operating room where he underwent a laparoscopic appendectomy. The operative findings included perforated appendicitis without an abscess. A drain was placed at the time of surgery. Postoperatively, he convalesced well. HPI Initial Comments: see dictated history and physical Diagnosis: Stroke: No - Discharge Data Discharge Date: 02/17/19 Discharge Disposition: Home, Self-Care 01 Condition: Fair - Discharge Diagnosis/Problem(s) (1) Acute perforated appendicitis SNOMED Code(s): 894179572 ICD Code: K35.32 - ACUTE APPENDICITIS WITH PERF AND LOC PERITONITIS, W/O ABSCS Status: Acute Priority: High - Patient Summary/Data Operative Procedure(s) Performed: Laparoscopic appendectomy - Patient Instructions Diet: Usual Diet as Tolerated Activity: No Lifting Over 25 Pounds (For 6 weeks) Driving: Do Not Drive (For 24 hours) Showering/Bathing: May Shower Wound/Incision Care: Keep Operative Site/Wound Site Clean and Dry, Do NOT Change Dressing Notify Provider of: Fever, Increased Pain, Nausea and/or Vomiting Other/Special Instructions: See Dr. Tamez on 02/19 as scheduled - Discharge Plan *PRESCRIPTION DRUG MONITORING PROGRAM REVIEWED*: Not Applicable *COPY OF PRESCRIPTION DRUG MONITORING REPORT IN PATIENT HE: Not Applicable Prescriptions/Med Rec: Acetaminophen/HYDROcodone [[place] 325-5 MG] 1 tab PO Q6H PRN 3 Days #10 tablet PRN Reason: Pain (Moderate 4-6) metroNIDAZOLE [Flagyl] 500 mg PO Q8H 5 Days #15 tab Home Medications: Home Meds Acetaminophen/HYDROcodone [[place] 325-5 MG] 1 tab PO Q6H PRN 3 Days #10 tablet [Rx] metroNIDAZOLE [Flagyl] 500 mg PO Q8H 5 Days #15 tab 02/17/19 [Rx] Patient Handouts: Acetaminophen; Hydrocodone tablets or capsules, Laparoscopic Appendectomy, Adult, Care After, [id number], Metronidazole tablets or capsules Referrals: Joe Tamez MD [Physician] - 02/19/19 1:00 pm PCP,None [Primary Care Provider] - - Discharge Summary/Plan Comment DC Time >30 min.: No - General Info Date of Service: 02/17/19 Admission Dx/Problem (Free Text: Admission Diagnosis/Problem Admission Diagnosis/Problem Appendicitis Functional Status: Reports: Pain Controlled, Tolerating Diet, Ambulating - Review of Systems General: Denies: Fever, Weakness, Fatigue, Malaise, Chills HEENT: Reports: No Symptoms Pulmonary: Reports: No Symptoms Cardiovascular: Reports: No Symptoms. Denies: Edema Gastrointestinal: Denies: Constipation, Decreased Appetite, Diarrhea, Nausea, Vomiting Genitourinary: Reports: No Symptoms Musculoskeletal: Reports: No Symptoms Skin: Reports: No Symptoms Neurological: Reports: No Symptoms Psychiatric: Reports: No Symptoms - Patient Data Vitals - Most Recent: Last Vital Signs Temp 100.6 F 02/17/19 12:00 Pulse 93 02/17/19 12:00 Resp 18 02/17/19 12:00 BP 109/73 02/17/19 12:00 Pulse Ox 95 02/17/19 12:00 Weight - Most Recent: 213 lb 13.574 oz Med Orders - Current: Current Medications Discontinued Medications Acetaminophen (Tylenol) 325 mg PO Q4H PRN PRN Reason: Fever Greater Than 101 Hydrocodone Bitart/Acetaminophen ([place] 325-5 Mg) 2 tab PO Q6H PRN PRN Reason: Pain (moderate 4-6) Last Admin: 02/17/19 13:18 Dose: 2 tab Hydrocodone Bitart/Acetaminophen ([place] 325-5 Mg) 1 - 2 tab PO Q4H PRN PRN Reason: Pain (moderate 4-6) Last Admin: 02/17/19 03:52 Dose: 2 tab Albuterol (Proventil Neb Soln) 2.5 mg NEB Q6HRRT PRN PRN Reason: Wheezing Atropine Sulfate (Atropine 0.1 Mg/Ml) 0.4 mg IVPUSH Q5M PRN PRN Reason: Bradycardia Bupivacaine HCl (Marcaine 0.5%) Confirm Administered Dose 30 ml .ROUTE .STK-MED ONE Stop: 02/15/19 21:57 Cefazolin Sodium (Ancef) Confirm Administered Dose 1 gm .ROUTE .STK-MED ONE Stop: 02/15/19 21:57 Dexamethasone (Dexamethasone) Confirm Administered Dose 20 mg .ROUTE .STK-MED ONE Stop: 02/15/19 22:10 Fentanyl (Sublimaze) Confirm Administered Dose 250 mcg .ROUTE .STK-MED ONE Stop: 02/15/19 22:10 Fentanyl (Sublimaze) 50 mcg IVPUSH Q5M PRN PRN Reason: Pain (severe 7-10) Stop: 02/16/19 22:19 Hydralazine HCl (Apresoline) 5 mg IVPUSH ONETIME PRN PRN Reason: Hypertension Hydralazine HCl (Apresoline) 10 mg IVPUSH ONETIME PRN PRN Reason: Hypertension Hydromorphone HCl (Dilaudid) 0.25 mg IVPUSH Q10M PRN PRN Reason: Pain (severe 7-10) Stop: 02/16/19 22:19 Sodium Chloride (Normal Saline) 1,000 mls @ 999 mls/hr IV STAT ONE Stop: 02/15/19 19:57 Last Admin: 02/15/19 19:32 Dose: 999 mls/hr Piperacillin Sod/Tazobactam (Sod 3.375 gm/ Sodium Chloride) 50 mls @ 100 mls/ hr IV ONETIME ONE Stop: 02/15/19 21:23 Last Admin: 02/15/19 21:03 Dose: 100 mls/hr Lactated Ringer's (Ringers, Lactated) 1,000 mls @ 125 mls/hr IV ASDIRECTED [facility] Last Admin: 02/15/19 21:46 Dose: 125 mls/hr Lactated Ringer's (Ringers, Lactated) 1,000 mls @ 125 mls/hr IV ASDIRECTED [facility] Last Admin: 02/17/19 03:56 Dose: 125 mls/hr Piperacillin Sod/Tazobactam (Sod 3.375 gm/ Sodium Chloride) 50 mls @ 100 mls/ hr IV Q8H [facility] Stop: 02/16/19 16:14 Last Admin: 02/16/19 15:07 Dose: 100 mls/hr Piperacillin Sod/Tazobactam (Sod 3.375 gm/ Sodium Chloride) 50 mls @ 100 mls/ hr IV Q8H [facility] Stop: 02/17/19 11:45 Last Admin: 02/16/19 15:14 Dose: Not Given Piperacillin Sod/Tazobactam (Sod 3.375 gm/ Sodium Chloride) 50 mls @ 100 mls/ hr IV Q8H [facility] Stop: 02/17/19 23:44 Last Admin: 02/17/19 08:34 Dose: 100 mls/hr Iopamidol (Isovue-370 (76%)) 100 ml IVPUSH ONETIME ONE Stop: 02/15/19 20:29 Last Admin: 02/15/19 20:28 Dose: 100 ml Ketorolac Tromethamine (Toradol) 30 mg IVPUSH ONETIME ONE Stop: 02/15/19 18:58 Last Admin: 02/15/19 19:32 Dose: 30 mg Ketorolac Tromethamine (Toradol) Confirm Administered Dose 30 mg .ROUTE .STK- MED ONE Stop: 02/15/19 22:10 Labetalol HCl (Normodyne) 10 mg IVPUSH Q6H PRN PRN Reason: Hypertension Stop: 02/16/19 22:19 Lidocaine (Xylocaine-Mpf 2%) Confirm Administered Dose 5 ml .ROUTE .STK-MED ONE Stop: 02/15/19 22:10 Meperidine HCl (Demerol) 12.5 mg IVPUSH ONETIME PRN PRN Reason: Shivering Meperidine HCl (Demerol) 25 mg IV ONETIME PRN PRN Reason: Shivering Metoclopramide HCl (Reglan) 10 mg IVPUSH ONETIME PRN PRN Reason: Nausea Midazolam HCl (Versed 1 Mg/Ml) Confirm Administered Dose 2 mg .ROUTE .STK-MED ONE Stop: 02/15/19 22:10 Morphine Sulfate (Morphine) 4 mg IVPUSH ONETIME ONE Stop: 02/15/19 21:42 Last Admin: 02/15/19 21:46 Dose: 4 mg Morphine Sulfate (Morphine) 4 mg IVPUSH Q10M PRN PRN Reason: Pain (severe 7-10) Stop: 02/16/19 22:19 Morphine Sulfate (Morphine) 0 mg IVPUSH Q1H PRN PRN Reason: Pain (severe 7-10) Last Admin: 02/16/19 23:34 Dose: 2 mg Naloxone HCl (Narcan) 0.1 mg IVPUSH ONETIME PRN PRN Reason: Respiratory Depression Ondansetron HCl (Zofran) 4 mg IVPUSH ONETIME ONE Stop: 02/15/19 18:58 Last Admin: 02/15/19 19:32 Dose: 4 mg Ondansetron HCl (Zofran) Confirm Administered Dose 8 mg .ROUTE .STK-MED ONE Stop: 02/15/19 22:10 Ondansetron HCl (Zofran) 8 mg IVPUSH ONETIME PRN PRN Reason: Nausea Ondansetron HCl (Zofran) 4 mg IVPUSH Q6H PRN PRN Reason: Nausea/Vomiting Promethazine HCl (Phenergan) 12.5 mg IM ONETIME PRN PRN Reason: Nausea Propofol (Diprivan 20 Ml) Confirm Administered Dose 200 mg .ROUTE .STK-MED ONE Stop: 02/15/19 22:10 Scopolamine (Transderm-Scop) 1.5 mg TRDERM Q72H PRN PRN Reason: Nausea - Exam General: Reports: Alert, Oriented, Cooperative, No Acute Distress HEENT: Reports: Pupils Equal, Pupils Reactive. Denies: Scleral Icterus Neck: Reports: Supple Lungs: Reports: Clear to Auscultation, Normal Respiratory Effort Cardiovascular: Reports: Regular Rate, Regular Rhythm, No Murmurs. Denies: Tachycardia GI/Abdominal Exam: Normal Bowel Sounds, Soft, Non-Tender, No Mass (Male) Exam: No Hernia Rectal (Males) Exam: Deferred Back Exam: Reports: Normal Inspection, Full Range of Motion Extremities: Normal Inspection Skin: Reports: Warm, Dry, Intact Wound/Incisions: Reports: Healing Well, Dressing Dry and Intact, No Drainage. Denies: Erythema Neurological: Reports: No New Focal Deficit Psy/Mental Status: Reports: Alert, Normal Affect, Normal Mood
== END 2019-02-17 14:45 | disposition home or self-care (01) ==
LOC: MW.ED 18:33 → MW.SDS 21:44 → MW.MS 23:31 → MW.SDS 02-16 20:08
PROVIDERS: ADMIT Surgery; ATTEND Surgery
DX: K35.32 Acute appendicitis with perforation, localized peritonitis, and gangrene, without abscess (principal)
CPT/HCPCS: 36415; 44970; 74177; 80053; 81001; 85025; 96361; 96365; 96375; 99285; A9270; J0690; J1100; J1885; J2001; J2250; J2270; J2405; J2543; J2704; J3010; J3490; J7040; J7050; J7120; Q9967; 00840; 71046; 71046-26; 81003; 83605; 87040; 88304; 99284-25; G0378

== ENCOUNTER 2019-08-23 03:15 | Emergency (ER) | payer BC ==
--- NOTE | 2019-08-23 03:39 | EDM.PDOC ---
ED HPI GENERAL MEDICAL PROBLEM - General Chief Complaint: General Stated Complaint: SEIZURE Time Seen by Provider: 08/23/19 03:26 - History of Present Illness INITIAL COMMENTS - FREE TEXT/NARRATIVE: HISTORY AND PHYSICAL: History of present illness: The patient is a healthy 33-year-old male who was working in his carotids that was not very well ventilated with a running vehicle and was likely exposed to carbon monoxide; the patient had this exposure about 12 midnight and says that he came in from the garage and fell asleep on the sofa immediately and then woke up and was dizzy lightheaded and had a brief loss of consciousness/ syncopal event in the bathroom for 10-15 seconds where he had some twitching and then awoke and was alert. EMS was dispatched and they did a quick carbon monoxide check and said the level was 17 and recommended transport into the ED but the patient refused. He did have some nausea without vomiting with these events and as a result of passing out and falling he has no head neck or back pain no chest pain no abdominal pain no shortness of breath and only some scratches on his left ankle without bony pain. He has no weakness numbness or tingling in his extremities nor any pain in his extremities or pelvis and currently in the ED he says he just feels very tired. The patient is not a smoker. witnessed the twitching and abnormal motor behavior after the patient passed out in the bathroom but he did not have loss of bowel or bladder and was alert and interactive with the and EMS on scene. They opted to come in and get checked out. I was called about this patient from the field and the refusal. He currently does not feel dizzy or lightheaded. Review of systems: As per history of present illness and below otherwise all systems reviewed and negative. Past medical history: As per history of present illness and as reviewed below otherwise noncontributory. Surgical history: As per history of present illness and as reviewed below otherwise noncontributory. Social history: No reported history of drug or alcohol abuse. Family history: As per history of present illness and as reviewed below otherwise noncontributory. Physical exam: General: Well-developed well-nourished man who is nontoxic and vital signs are noted by me. He angulated into the ED without distress and is speaking clearly and easily. HEENT: Atraumatic, normocephalic, pupils reactive, negative for conjunctival pallor or scleral icterus, mucous membranes moist, throat clear, neck supple, nontender, trachea midline. There is no scalp tenderness defects or deformities and no midline step-offs in his defects of the cervical spine Lungs: Clear to auscultation, breath sounds equal bilaterally, chest nontender. Heart: S1S2, regular rate and rhythm no overt murmurs Abdomen: Soft, nondistended, nontender. Negative for masses or hepatosplenomegaly. Negative for costovertebral tenderness. Pelvis: Stable nontender. Genitourinary: Deferred. Rectal: Deferred. Extremities: Atraumatic, negative for cords or calf pain. Neurovascular unremarkable. Full range of motion without defects or deficits or tenderness with palpation. There is a superficial scratch at the lateral aspect of the left ankle without soft tissue swelling defects or deformities and this is the area that the patient said he does have some discomfort but he feels it is in the skin and not in the bone on palpation. Neuro: Awake, alert, oriented. Cranial nerves II through XII unremarkable. Cerebellum unremarkable. Motor and sensory unremarkable throughout. Exam nonfocal. Back: There are no midline step-offs in his defects of the thoracic or lumbar spine and no posterior rib tenderness. Diagnostics: EKG chest x-ray CT scan of the head he CMP TSH troponin carboxyhemoglobin level x 2 Therapeutics: 100 percent oxygen therapy I contacted poison control at 4:38 AM and discussed the case with them and they agree with my management plan of under percent oxygen and close observation in light of the fact that he has no EKG changes no chest pain normal troponin and no anion gap acidosis. They do not recommend admission nor further treatment or intervention at this time other than the oxygen therapy. The patient is sleeping and the is at bedside and aware that we will continue the 100% oxygen and recheck his carbon monoxide level at 90 minutes and if it is trending downward and into an acceptable range we will plan on discharge home Impression: Carbon monoxide exposure, brief syncopal event stable Definitive disposition and diagnosis as appropriate pending reevaluation and review of above. - Related Data Allergies Allergy/AdvReac Type Severity Reaction Status Date / Time No Known Allergies Allergy Verified 08/23/19 03:22 Home Meds: Home Meds . [No Known Home Meds] 08/23/19 [History] Past Medical History - Past Health History Medical/Surgical History: Denies Medical/Surgical History HEENT History: Reports: None - Infectious Disease History Infectious Disease History: Reports: Chicken Pox - Past Surgical History HEENT Surgical History: Reports: Oral Surgery, Other (See Below) Other HEENT Surgeries/Procedures: wisdom teeth out GI Surgical History: Reports: Appendectomy Social & Family History - Family History Family Medical History: Noncontributory Oncologic: Reports: Leukemia - Tobacco Use Smoking Status *Q: Never Smoker - Caffeine Use Caffeine Use: Reports: None - Recreational Drug Use Recreational Drug Use: No ED ROS GENERAL - Review of Systems Review Of Systems: ROS reveals no pertinent complaints other than HPI. ED EXAM, GENERAL - Physical Exam Exam: See Below (See dictation) Course - Vital Signs Last Recorded V/S: Last Vital Signs Temp 35.8 C 08/23/19 03:22 Pulse 55 L 08/23/19 05:17 Resp 14 08/23/19 05:17 BP 112/72 08/23/19 05:17 Pulse Ox 99 08/23/19 05:17 - Orders/Labs/Meds Orders: Active Orders 24 hr Category Date Time Status EKG Documentation Completion [RC] STAT Care 08/23/19 03:34 Active Oxygen Therapy, ED [RC] ASDIRECTED Care 08/23/19 03:34 Active Labs: Laboratory Tests 08/23/19 08/23/19 08/23/19 Range/Units 03:43 03:43 03:43 WBC 4.83 (4.0-11.0) K/uL RBC 5.07 (4.50-5.90) M/uL Hgb 15.4 (13.0-17.0) g/dL Hct 44.5 (38.0-50.0) % MCV 87.8 (80.0-98.0) fL MCH 30.4 (27.0-32.0) pg MCHC 34.6 (31.0-37.0) g/dL RDW Std Deviation 39.4 (28.0-62.0) fl RDW Coeff of Vira 12 (11.0-15.0) % Plt Count 176 (150-400) K/uL MPV 10.40 (7.40-12.00) fL Neut % (Auto) 56.5 (48.0-80.0) % Lymph % (Auto) 34.8 (16.0-40.0) % Caroline % (Auto) 6.8 (0.0-15.0) % Eos % (Auto) 1.7 (0.0-7.0) % Baso % (Auto) 0.2 (0.0-1.5) % Neut # (Auto) 2.7 (1.4-5.7) K/uL Lymph # (Auto) 1.7 (0.6-2.4) K/uL Caroline # (Auto) 0.3 (0.0-0.8) K/uL Eos # (Auto) 0.1 (0.0-0.7) K/uL Baso # (Auto) 0.0 (0.0-0.1) K/uL Nucleated RBC % 0.0 /100WBC Nucleated RBCs # 0 K/uL ABG Carboxyhemoglobin 12.8 (0-15) % Sodium 142 (136-148) mmol/L Potassium 3.7 (3.5-5.1) mmol/L Chloride 106 (98-107) mmol/L Carbon Dioxide 24.8 (21.0-32.0) mmol/L BUN 15 (7.0-18.0) mg/dL Creatinine 1.0 (0.8-1.3) mg/dL Est Cr Clr Drug Dosing 117.63 mL/min Estimated GFR (MDRD) > 60.0 ml/min Glucose 107 H (74-106) mg/dL Calcium 8.6 (8.5-10.1) mg/dL Total Bilirubin 0.3 (0.2-1.0) mg/dL AST 27 (15-37) IU/L ALT 34 (14-63) IU/L Alkaline Phosphatase 70 (46-116) U/L Troponin I < 0.050 (0.000-0.056) ng/mL Total Protein 7.2 (6.4-8.2) g/dL Albumin 3.6 (3.4-5.0) g/dL Globulin 3.6 (2.6-4.0) g/dL Albumin/Globulin Ratio 1.0 (0.9-1.6) TSH 3rd Generation 2.86 (0.36-3.74) uIU/mL 08/23/19 Range/Units 05:25 WBC (4.0-11.0) K/uL RBC (4.50-5.90) M/uL Hgb (13.0-17.0) g/dL Hct (38.0-50.0) % MCV (80.0-98.0) fL MCH (27.0-32.0) pg MCHC (31.0-37.0) g/dL RDW Std Deviation (28.0-62.0) fl RDW Coeff of Vira (11.0-15.0) % Plt Count (150-400) K/uL MPV (7.40-12.00) fL Neut % (Auto) (48.0-80.0) % Lymph % (Auto) (16.0-40.0) % Caroline % (Auto) (0.0-15.0) % Eos % (Auto) (0.0-7.0) % Baso % (Auto) (0.0-1.5) % Neut # (Auto) (1.4-5.7) K/uL Lymph # (Auto) (0.6-2.4) K/uL Caroline # (Auto) (0.0-0.8) K/uL Eos # (Auto) (0.0-0.7) K/uL Baso # (Auto) (0.0-0.1) K/uL Nucleated RBC % /100WBC Nucleated RBCs # K/uL ABG Carboxyhemoglobin 6.9 (0-15) % Sodium (136-148) mmol/L Potassium (3.5-5.1) mmol/L Chloride (98-107) mmol/L Carbon Dioxide (21.0-32.0) mmol/L BUN (7.0-18.0) mg/dL Creatinine (0.8-1.3) mg/dL Est Cr Clr Drug Dosing mL/min Estimated GFR (MDRD) ml/min Glucose (74-106) mg/dL Calcium (8.5-10.1) mg/dL Total Bilirubin (0.2-1.0) mg/dL AST (15-37) IU/L ALT (14-63) IU/L Alkaline Phosphatase (46-116) U/L Troponin I (0.000-0.056) ng/mL Total Protein (6.4-8.2) g/dL Albumin (3.4-5.0) g/dL Globulin (2.6-4.0) g/dL Albumin/Globulin Ratio (0.9-1.6) TSH 3rd Generation (0.36-3.74) uIU/mL Departure - Departure Time of Disposition: 05:34 Disposition: Home, Self-Care 01 Condition: Good Clinical Impression: Exposure to carbon monoxide Syncope Qualifiers: Syncope type: unspecified Qualified Code(s): R55 - Syncope and collapse - Discharge Information Referrals: PCP,None [Primary Care Provider] - Forms: ED Department Discharge Additional Instructions: The following information is given to patients seen in the emergency department who are being discharged to home. This information is to outline your options for follow-up care. We provide all patients seen in our emergency department with a follow-up referral. The need for follow-up, as well as the timing and circumstances, are variable depending upon the specifics of your emergency department visit. If you don't have a primary care physician on staff, we will provide you with a referral. We always advise you to contact your personal physician following an emergency department visit to inform them of the circumstance of the visit and for follow-up with them and/or the need for any referrals to a consulting specialist. The emergency department will also refer you to a specialist when appropriate. This referral assures that you have the opportunity for followup care with a specialist. All of these measure are taken in an effort to provide you with optimal care, which includes your followup. Under all circumstances we always encourage you to contact your private physician who remains a resource for coordinating your care. When calling for followup care, please make the office aware that this follow-up is from your recent emergency room visit. If for any reason you are refused follow-up, please contact the [facility] emergency department at and ask to speak to the emergency department charge nurse. [facility] [id number] [place] [address] Please avoid working in confined spaces with machinery and vehicles for the next 24 hours and then please only do so with good ventilation. Call and schedule a follow-up appointment with your provider in the clinic or one of hours and return to ER as needed and as discussed - My Orders Last 24 Hours: My Active Orders 08/23/19 03:34 EKG Documentation Completion [RC] STAT Oxygen Therapy, ED [RC] ASDIRECTED - Assessment/Plan Last 24 Hours: My Active Orders 08/23/19 03:34 EKG Documentation Completion [RC] STAT Oxygen Therapy, ED [RC] ASDIRECTED
[2019-08-23 04:17] LABS: BLOOD UREA NITROGEN,BUN 15 mg/dL (7.0-18.0); CARBON DIOXIDE,CO2 24.8 mmol/L (21.0-32.0); CHLORIDE,CL 106 mmol/L (98-107); GLUCOSE RANDOM 107 mg/dL (74-106); POTASSIUM,K 3.7 mmol/L (3.5-5.1); SODIUM,NA 142 mmol/L (136-148)
--- NOTE | 2019-08-23 05:11 | CR ---
Indication: CO2 exposure, dizziness, seizure Technique: Chest 1 view Comparison: None Findings/Impression: Cardiovascular and mediastinum: Heart size and vasculature are normal in caliber and appearance. Mediastinum is within normal limits. Lungs and pleural space: Lungs are clear. No sign of infiltrate or mass. No sign of pleural effusion. No pneumothorax. Bones and soft tissues: No significant findings. Dictated by Arianna Chung MD @ Aug 23 2019 5:10AM Signed by Dr. Arianna Chung @ Aug 23 2019 5:10AM
--- NOTE | 2019-08-23 05:11 | CT ---
INDICATION: CO2 exposure, dizziness, seizure TECHNIQUE: CT head without contrast. COMPARISON: None FINDINGS: CSF spaces: Within normal limits for age. Brain parenchyma: The bonilla-white differentiation is normal. No sign of mass, hemorrhage, or midline shift. Skull base and calvarium: There are frothy secretions in the left maxillary sinus. The mastoid air cells demonstrate no acute or significant findings. The visualized orbits are grossly unremarkable. No skull fractures. IMPRESSION: No acute intracranial abnormality. Frothy secretions in the left maxillary sinus. Please note that all CT scans at this facility use dose modulation, iterative reconstruction, and/or weight-based dosing when appropriate to reduce radiation dose to as low as reasonably achievable. Dictated by Arianna Chung MD @ Aug 23 2019 5:10AM Signed by Dr. Arianna Chung @ Aug 23 2019 5:10AM
[2019-08-23 05:17] VITALS: BP 112/72; PULSE 55
== END 2019-08-23 05:47 | disposition home or self-care (01) ==
LOC: MW.ED 03:15
DX: T58.91XA Toxic effect of carbon monoxide from unspecified source, accidental (unintentional), initial encounter (principal); R55 Syncope and collapse
CPT/HCPCS: 36415; 70450; 70450-26; 71045; 71045-26; 80053; 82375; 84443; 84484; 85025; 93005; 99284; 99284-25